=== PATIENT | male | born 1995 | race Asian ===

== ENCOUNTER 2017-07-10 21:51 | Emergency (ER) | payer OTHER ==
[2017-07-11] MEDS: KETOROLAC 60 MG INJ IM (00:15)
== END 2017-07-11 01:43 | disposition home or self-care (01) ==
LOC: FTE 21:51
DX: S60.221A Contusion of right hand, initial encounter (principal); W21.05XA Struck by basketball, initial encounter; Y92.9 Unspecified place or not applicable
CPT/HCPCS: 73130; 73130-RT; 96372; 99284-25

== ENCOUNTER 2018-05-18 18:24 | Emergency (ER) | payer SELFPAY, OTHER | END 2018-05-18 21:30 | disposition left against medical advice (07) | LOC: FTE 18:24 | DX: Z53.21 Procedure and treatment not carried out due to patient leaving prior to being seen by health care provider (principal) ==